=== PATIENT | male | born 2000 | race African-American/Black ===

== ENCOUNTER 2022-12-12 16:08 | Emergency (ER) | payer OTHER ==
[2022-12-12 16:46] LABS: Absolute Lymphocytes (CBC) 1.7 K/uL (0.7-4.9); Hematocrit 41.1 % (39.6-49.0); MCV 89.2 fL (80-100); MPV 7.9 fL (7.6-11.3)
[2022-12-12 16:57] LABS: Albumin 4.2 g/dL (3.4-5.0); Bilirubin Total 0.6 mg/dL (0.2-1.0)
--- NOTE | 2022-12-12 17:20 | RAD REPORT ---
EXAM DESCRIPTION: CT - CTHCSPWOC - 12/12/2022 4:48 pm CLINICAL HISTORY: CONFUSED COMPARISON: No comparisons TECHNIQUE: Axial thin cut noncontrast CT images of the head were obtained. Axial thin cut noncontrast CT images of the cervical spine were obtained. Multiplanar reformatted images were generated and reviewed. All CT scans are performed using dose optimization technique as appropriate and may include automated exposure control or mA/KV adjustment according to patient size. FINDINGS: CT HEAD WITHOUT CONTRAST: No acute hemorrhage, hydrocephalus or extra-axial collection is identified.No areas of brain edema or midline shift. The paranasal sinuses and mastoids are clear.The calvarium is intact. CT CERVICAL SPINE WITHOUT CONTRAST: No fracture or subluxation.Gentle reversal of normal lordosis noted, which may be positional or secon coby to muscle spasm. Incidentally noted small fused cervical ribs.No prevertebral soft tissues swell ing is identified. IMPRESSION: No acute traumatic intracranial or cervical spine findings. Gentle reversal of normal cervical lordosis, which may be positional or secondary to muscle spasm.
--- NOTE | 2022-12-12 17:27 | RAD REPORT ---
EXAM DESCRIPTION: Cristina Single View12/12/2022 5:20 pm CLINICAL HISTORY: CHEST PAIN COMPARISON: No comparisons TECHNIQUE: Portable AP view of the chest. FINDINGS: The lungs are clear apart from peripheral symmetric regions of hazy increased density whic h may relate to technique or overlapping soft tissues. Decreased inspiratory effort limits evaluation . No pneumothorax or effusion. The cardiomediastinal contours are unremarkable. IMPRESSION: No acute cardiopulmonary process, allowing for the limitations mentioned above.
--- NOTE | 2022-12-12 17:42 | EDPHYS ---
Physician Documentation [facility] Name: Geoffrey Martin Age: 22 yrs Sex: Male : 2000 Arrival Date: 12/12/2022 Time: 16:08 Bed 2 Private MD: ED Physician Kaushal Morel HPI: 12/12 16:21 This 22 yrs old Black Male presents to ER via EMS with complaints of ams. bs3 16:21 22-year-old male history of depression brought in for altered mental status from bs3 presenting per EMS he was Clement neck and had an elevated end-tidal CO2 they gave him 1 mg of Narcan and he seemed to improve when the patient arrived here he had no complaints he endorsed smoking something that he had never smoked before adolescent remember what happened he was placed in a c-collar prior to arrival but denies any neck pain denies chest pain shortness of breath fevers chills he did have vomiting earlier but has no nausea now he states he is hungry he review of systems notes that several days ago he ended up with black and blue eye it is not new and does not hurt. Historical: - Allergies: 16:13 Ibuprofen; mb9 - Home Meds: 16:13 None [Active]; mb9 - PMHx: 16:13 Depressive disorder; mb9 - PSHx: 16:13 None; mb9 - Immunization history:: Adult Immunizations up to date. - Social history:: Smoking status: unknown. ROS: 16:21 Constitutional: Negative for fever, chills bs3 16:21 All other systems are negative. Exam: 16:21 Constitutional: This is a well developed, well nourished patient who is awake, alert, bs3 and in no acute distress. Head/Face: periorbital ecchymosis under the left eye. EOM intact Eyes: Pupils equal round and reactive to light, extra-ocular motions intact. Lids and lashes normal. ENT: mmm, no posterior phyarngeal erythema Neck: Trachea midline, no thyromegaly, no neck stiffness Chest/axilla: Normal chest wall appearance and motion. Nontender with no deformity. No lesions are appreciated. Cardiovascular: Regular rate and rhythm with a normal S1 and S2. symmetric pulses in upper extremities Respiratory: Lungs have equal breath sounds bilaterally, clear to auscultation, no respiratory distress Abdomen/GI: Soft, non-tender, no rebound or guarding Skin: Warm, dry with normal turgor. Normal color with no rashes, no lesions, and no evidence of cellulitis. MS/ Extremity: Pulses equal, no cyanosis. Neurovascular intact. Full, normal range of motion. Neuro: Awake and alert, GCS 15, oriented to person, place, time, and situation. Cranial nerves II-XII grossly intact. Motor strength 5/5 in all extremities. Sensory grossly intact. 16:[address] elevation or depression qtc 399 as interpreted by myself. bs3 Vital Signs: 16:10 BP 115 / 101; Pulse 66; Resp 13; Temp 98.2; Pulse Ox 100% on R/A; Weight 68.04 kg; mb9 Height 5 ft. 10 in. ; 16:28 BP 115 / 101; Pulse 84; Resp 23; Pulse Ox 100% on R/A; ld1 16:58 BP 122 / 88; Pulse 59; Resp 16; Pulse Ox 100% on R/A; Pain 0/10; ld1 17:56 BP 118 / 76; Pulse 59; Resp 18; Pulse Ox 100% on R/A; Pain 0/10; ld1 16:10 Body Mass Index 21.52 (68.04 kg, 177.8 cm) mb9 16:58 Pain Scale: Adult ld1 17:56 Pain Scale: Adult ld1 MDM: 16:10 Patient medically screened. bs3 16:21 Differential Diagnosis: pt with ams now resolved, will observe, will r/o ich, will r/o bs3 c spine injury, will check leectroloytes. . Data reviewed: vital signs, nurses notes. 17:40 ED course: pt feeling better, tolerated po will dc home. bs3 06/02 16:11 Order name: CBC with Diff; Complete Time: 17:03 bs3 / 16:11 Order name: Comprehensive Metabolic Panel; Complete Time: 17:03 bs3 / 16:11 Order name: XRAY Chest (1 view); Complete Time: 17:35 bs3 12/12 16:15 Order name: Head C Spine Mpr Wo Con; Complete Time: 17:35 EDMS 12/12 16:11 Order name: EKG - Nurse/Tech; Complete Time: 16:28 bs3 Administered Medications: No medications were administered Disposition Summary: 12/12/22 17:42 Discharge Ordered Location: Home bs3 Problem: new bs3 Symptoms: have worsened bs3 Condition: Stable bs3 Diagnosis - Altered mental status, unspecified bs3 Followup: bs3 - With: Private Physician - When: 5 - 6 days - Reason: Re-evaluation by your physician Discharge Instructions: - Discharge Summary Sheet bs3 - Confusion bs3 Forms: - Medication Reconciliation Form bs3 - Thank You Letter bs3 - Antibiotic Education bs3 - Prescription Opioid Use bs3 Signatures: Dispatcher [employer] EDMS Kaushal Morel MD MD bs3 Maria Del Carmen Gonzalez RN RN mb9 Corrections: (The following items were deleted from the chart) 16:13 16:12 Head Brain Wo Cont+CT.RAD.BRZ ordered. EDMS EDMS 16:18 16:12 C Spine Wo Con+CT.RAD.BRZ ordered. EDMS EDMS
--- NOTE | 2022-12-12 17:42 | ER ---
Nurse's Notes [facility] Name: Geoffrey Martin Age: 22 yrs Sex: Male : 2000 Arrival Date: 12/12/2022 Time: 16:08 Bed 2 Private MD: Diagnosis: Altered mental status, unspecified Presentation: 12/12 16:10 Chief complaint: EMS states: "There is a lot of "unknowns" in this situation. Pt was mb9 found unresponsive, with a pulse, with vomitus on him, pinpoint pupils, and bruise under left eye. We applied c-collar and administered 1 mg of Narcan due to RR being 10. His RR went to 18 and become verbally responsive." Pt states "I remember I was high, and the next I was throwing up. I smoked something.". Coronavirus screen: Vaccine status: Patient reports receiving the 2nd dose of the covid vaccine. Ebola Screen: No symptoms or risks identified at this time. Initial Sepsis Screen: Does the patient meet any 2 criteria? No. Patient's initial sepsis screen is negative. Does the patient have a suspected source of infection? No. Patient's initial sepsis screen is negative. Risk Assessment: Do you want to hurt yourself or someone else? Patient reports no desire to harm self or others. Onset of symptoms was December 12, 2022. 16:10 Method Of Arrival: EMS: [facility] 16:10 Acuity: DOYLE 2 mb9 Triage Assessment: 16:14 General: Appears in no apparent distress. Behavior is drowsy. Pain: Denies pain. EENT:. mb9 Neuro: Gutierrez Agitation-Sedation Scale (RASS): 0 - Alert and Calm Level of Consciousness is awake, obeys commands, lethargic, Oriented to person, situation. Cardiovascular: Rhythm is regular. Respiratory: Airway is patent Respiratory effort is even, unlabored, Respiratory pattern is regular, symmetrical. Derm: Skin is pink, warm \\T\\ dry. Historical: - Allergies: 16:13 Ibuprofen; mb9 - Home Meds: 16:13 None [Active]; mb9 - PMHx: 16:13 Depressive disorder; mb9 - PSHx: 16:13 None; mb9 - Immunization history:: Adult Immunizations up to date. - Social history:: Smoking status: unknown. Screenin:28 [facility] ED Fall Risk Assessment (Adult) History of falling in the last 3 months, ld1 including since admission No falls in past 3 months (0 pts). Abuse screen: Denies threats or abuse. Denies injuries from another. Nutritional screening: No deficits noted. Tuberculosis screening: No symptoms or risk factors identified. Assessment: 16:28 General: Appears in no apparent distress. comfortable, Behavior is calm, cooperative, ld1 appropriate for age. Pain: Denies pain. Neuro: Level of Consciousness is awake, alert, obeys commands, Oriented to person, place, time, situation. Cardiovascular: Capillary refill < 3 seconds Patient's skin is warm and dry. Rhythm is sinus bradycardia. Respiratory: Airway is patent Respiratory effort is even, unlabored. GI: Abdomen is flat, non-distended, EMS reports emesis upon arrival to [facility] unit. : No signs and/or symptoms were reported regarding the genitourinary system. EENT: No signs and/or symptoms were reported regarding the EENT system. Derm: No signs and/or symptoms reported regarding the dermatologic system. Musculoskeletal: No signs and/or symptoms reported regarding the musculoskeletal system. 17:56 Reassessment: Patient appears in no apparent distress at this time. No changes from ld1 previously documented assessment. Patient and/or family updated on plan of care and expected duration. Pain level reassessed. Patient is alert, oriented x 3, equal unlabored respirations, skin warm/dry/pink. Vital Signs: 16:10 BP 115 / 101; Pulse 66; Resp 13; Temp 98.2; Pulse Ox 100% on R/A; Weight 68.04 kg; mb9 Height 5 ft. 10 in. ; 16:28 BP 115 / 101; Pulse 84; Resp 23; Pulse Ox 100% on R/A; ld1 16:58 BP 122 / 88; Pulse 59; Resp 16; Pulse Ox 100% on R/A; Pain 0/10; ld1 17:56 BP 118 / 76; Pulse 59; Resp 18; Pulse Ox 100% on R/A; Pain 0/10; ld1 16:10 Body Mass Index 21.52 (68.04 kg, 177.8 cm) mb9 16:58 Pain Scale: Adult ld1 17:56 Pain Scale: Adult ld1 ED Course: 16:09 Patient arrived in ED. eb 16:10 Kaushal Morel MD is Attending Physician. bs3 16:11 Faye Aguillon, RN is Primary Nurse. ld1 16:13 Triage completed. mb9 16:13 Arm band placed on. mb9 16:14 Placed in gown. Bed in low position. Call light in reach. Side rails up X 1. Client mb9 placed on continuous cardiac and pulse oximetry monitoring. NIBP monitoring applied. hospital monitor on. 16:28 Comprehensive Metabolic Panel Sent. ld1 16:28 CBC with Diff Sent. ld1 16:28 Inserted saline lock: 20 gauge in right forearm, using aseptic technique. Blood ld1 collected. 16:28 No provider procedures requiring assistance completed. ld1 16:50 Head C Spine Mpr Wo Con In Process Unspecified. EDMS 17:22 XRAY Chest (1 view) In Process Unspecified. EDMS 17:56 IV discontinued, intact, bleeding controlled, No redness/swelling at site. ld1 Administered Medications: No medications were administered Medication: 16:15 VIS not applicable for this client. mb9 Outcome: 17:42 Discharge ordered by . bs3 17:56 Discharged to Law Enforcement ld1 17:56 Condition: stable 17:56 Discharge instructions given to patient, police, Instructed on discharge instructions, follow up and referral plans. Demonstrated understanding of instructions, follow-up care. 19:08 Patient left the ED. jb4 Signatures: Dispatcher [employer] EDMS Cipriano Kim RN RN jb4 Leonor Torres Faye Aguillon, RN RN ld1 Kaushal Morel MD MD bs3 Maria Del Carmen Gonzalez RN RN mb9
[2022-12-12 19:30] VITALS: BP 152/73; TEMP 98.3; O2SAT 100
--- NOTE | 2022-12-15 10:19 | EKG ---
Test Date: 2022-12-12 Test Time: 16:15:28 [employer]er [employer]: Nitza HERNANDEZ MEASUREMENT RESULTS: Intervals: Rate: 55 OK: 168 QRSD: 82 QT: 418 QTc: 399 [place]: P: 68 OK: 168 QRS: 85 T: 57 INTERPRETIVE STATEMENTS: Sinus bradycardia Otherwise normal ECG No previous ECG available for comparison Electronically Signed On 12-15-22 10:14:17 CDT by Migue Springer
== END 2022-12-12 19:08 | disposition home or self-care (01) ==
LOC: ER 16:08 → EDSEX 16:08 → ER 19:08
DX: R41.82 Altered mental status, unspecified (principal); F32.A Depression, unspecified; Z88.6 Allergy status to analgesic agent
CPT/HCPCS: 36415; 70450; 71045; 72125; 80053; 85025; 93005; 99284